=== PATIENT | female | born 1995 | race American Indian/Alaskan Native ===

== ENCOUNTER 2017-01-10 18:02 | Emergency (ER) | payer SELFPAY ==
[2017-01-10 18:32] VITALS: BP 130/85
== END 2017-01-10 21:45 | disposition left against medical advice (07) ==
LOC: ED 18:02
DX: S01.511A Laceration without foreign body of lip, initial encounter (principal); X58.XXXA Exposure to other specified factors, initial encounter; Y93.9 Activity, unspecified; Y92.89 Other specified places as the place of occurrence of the external cause; Y99.9 Unspecified external cause status; Z53.21 Procedure and treatment not carried out due to patient leaving prior to being seen by health care provider

== ENCOUNTER 2019-03-03 04:38 | Inpatient (IN) | payer OTHER ==
[2019-03-03] MEDS ORDERED: SODIUM CHLORIDE 0.9% 1000 ML 1,000 ML IV ONE ×2 (05:01→09:01)
[2019-03-03 05:27] LABS: Bacteria,Urine 1+ /HPF (Negative); Bilirubin,Urine NEG (Negative); Blood,Urine NEG (Negative); Color,Urine Straw (Yellow); Hyaline Casts,Urine 1 /LPF; Protein,Urine <15 mg/dL mg/dL (Negative); Urobilinogen,Urine < 2.0 mg/dL (<2.0)
[2019-03-03 05:32] LABS: Amphetamine Screen,Urine PRESUMPTIVE NEGATIVE; Benzodiazepines Screen,Urine PRESUMPTIVE NEGATIVE; Cannabinoid Screen,Urine PRESUMPTIVE NEGATIVE; Cocaine Screen,Urine PRESUMPTIVE NEGATIVE; Methadone Screen,Urine PRESUMPTIVE NEGATIVE; Opiate Screen,Urine PRESUMPTIVE NEGATIVE
[2019-03-03 06:02] LABS: Basophils # (Auto) 0.1 K/mm3 (0.0-0.1); Basophils % (Auto) 0.7 % (0.0-1.8); Eosinophils % (Auto) 0.3 % (0.0-4.3); Hematocrit 33.5 % (30.3-42.9); Hemoglobin 10.7 gm/dl (10.1-14.3); Lymphocytes # (Auto) 1.3 K/mm3 (1.2-5.4); Lymphocytes % (Auto) 16.4 % (13.4-35.0); Mean Corpuscular HGB Conc 32 % (30-34); Mean Corpuscular Volume 77 fl (79-97); Monocytes # (Auto) 0.6 K/mm3 (0.0-0.8); Monocytes % (Auto) 7.2 % (0.0-7.3); Platelet Count 185 K/mm3 (140-440); Red Blood Count 4.35 M/mm3 (3.65-5.03); Red Cell Distribution Width 16.7 % (13.2-15.2)
[2019-03-03 06:12] LABS: BUN/Creatinine Ratio 19; Blood Urea Nitrogen 15 mg/dL (7-17); Calcium 9.7 mg/dL (8.4-10.2); Hemolysis Index 6
[2019-03-03 06:22] LABS: Free T4 (Free Thyroxine) 1.11 ng/dL (0.76-1.46)
--- NOTE | 2019-03-03 06:29 | Emergency Department Report ---
History of Present Illness - General Chief Complaint: Psych Stated Complaint: POSS OD Time Seen by Provider: 03/03/19 06:13 Source: patient, EMS Mode of arrival: Stretcher Limitations: Other - History of Present Illness Initial Comments: Patient is a 23-year-old female that presents emergency room for possible overdose. Mother is at bedside. Mother states that the patient possibly took Seroquel. Mother has empty bottles of Seroquel which are bottles of the patient's boyfriend reviewed patient denies chest pain. Patient denies any complaints. Patient denies suicidal or homicidal ideation.. Patient denies taking medications. Complaint: accidental overdose -: Sudden Intent: unknown How Overdose Was Discovered: called family/friend Context: Intentional Overdose: relationship problems Context: Accidental Overdose: uncertain what happened Treatments Prior to Arrival: none - Related Data Allergies Allergy/AdvReac Type Severity Reaction Status Date / Time No Known Allergies Allergy Unverified 01/10/17 18:28 ED Review of Systems ROS: Stated complaint: POSS OD Other details as noted in HPI Constitutional: denies: chills, fever Eyes: denies: eye pain, eye discharge, vision change ENT: denies: ear pain, throat pain Respiratory: denies: cough, shortness of breath, wheezing Cardiovascular: denies: chest pain, palpitations Endocrine: no symptoms reported Gastrointestinal: denies: abdominal pain, nausea, diarrhea Genitourinary: denies: urgency, dysuria, discharge Musculoskeletal: denies: back pain, joint swelling, arthralgia Skin: denies: rash, lesions Neurological: denies: headache, weakness, paresthesias Psychiatric: denies: anxiety, depression Hematological/Lymphatic: denies: easy bleeding, easy bruising ED Past Medical Hx - Past Medical History Previous Medical History?: No - Surgical History Past Surgical History?: No - Family History Family history: no significant - Social History Smoking Status: Current Every Day Smoker Substance Use Type: Marijuana ED Physical Exam - General Limitations: Altered Mental Status General appearance: alert, in no apparent distress - Head Head exam: Present: atraumatic, normocephalic - Eye Eye exam: Present: normal appearance - ENT ENT exam: Present: mucous membranes moist - Neck Neck exam: Present: normal inspection - Respiratory Respiratory exam: Present: normal lung sounds bilaterally. Absent: respiratory distress - Cardiovascular Cardiovascular Exam: Present: regular rate, normal rhythm. Absent: systolic murmur, diastolic murmur, rubs, gallop - GI/Abdominal GI/Abdominal exam: Present: soft, normal bowel sounds - Extremities Exam Extremities exam: Present: normal inspection - Back Exam Back exam: Present: normal inspection - Neurological Exam Neurological exam: Present: alert, altered - Psychiatric Psychiatric exam: Present: flat affect - Expanded Psychiatric Exam Expanded Focused psych exam: Present: pressured speech, delusional, restlessness, flight of ideas - Skin Skin exam: Present: warm, dry, intact, normal color. Absent: rash ED Course Vital Signs 03/03/19 03/03/19 03/03/19 04:40 05:20 07:01 Temperature 97.8 F Pulse Rate 131 H 106 H Respiratory 22 18 26 H Rate Blood Pressure 137/87 Blood Pressure 153/95 [Right] O2 Sat by Pulse 100 100 Oximetry 03/03/19 10:04 Temperature Pulse Rate 93 H Respiratory 16 Rate Blood Pressure Blood Pressure 125/77 [Right] O2 Sat by Pulse 98 Oximetry - Reevaluation(s) Reevaluation #1: Initial evaluation done. The nurse will contact poison control 03/03/19 06:29 Reevaluation #2: Patient is alert and oriented 3. Patient denies taking Seroquel. Patient states she only took 2 Benadryl. Patient denies suicidal or homicidal ace ations. Patient is still acting strange. Due to the fact the patient is a psychiatric been improving. Patient placed on a 1013. 03/03/19 08:50 Reevaluation #3: Denies taking any medications. Patient still acting strange. Due to the fact patient is having prolonged QTC enteral and metabolic acidosis. Patient will be admitted to the hospitalist service for continued evaluation and observation.. Patient and Mother agree with plan of care. Patient is are to be placed on a 1013. I discussed all results with patient and mother. 03/03/19 09:01 - Consultations Consultation #1: Hospitalist consult for admission. Hospitalist admit patient. [facility] orders placed 03/03/19 09:07 ED Medical Decision Making - Lab Data Result diagrams: 03/03/19 05:22 03/03/19 05:22 - EKG Data -: EKG Interpreted by Me EKG shows normal: sinus rhythm, axis, intervals, QRS complexes, ST-T waves Rate: tachycardia - EKG Data Interpretation: other (borderline QT interval) - Medical Decision Making Patient is a 23-year-old female that presents emergency room for possible overdose and ingestion of Seroquel. Patient's clinical exam consistent with acute psychosis and bizarre behaviors. Patient somewhat unreliable as a historian. Patient story continues to change upon what she actually ingested. Patient had labs done and consistent with metabolic acidosis. Patient given fluids in the ER. Poison control consult. Patient had a prolonged QT on EKG. Laboratory findings and EKG findings, are concerning and consistent with a drug ingestion and possible overdose. Patient admitted to the hospitalist service for further evaluation treatment and observation and repeat assessments. - Differential Diagnosis psychosis. Overdose. Drug ingestion. Metabolic acidosis. Critical Care Time: Yes Critical care time in (mins) excluding proc time.: 45 Critical care attestation.: If time is entered above; I have spent that time in minutes in the direct care of this critically ill patient, excluding procedure time. Critical Care Time: 45 minutes ED Disposition Clinical Impression: Acute psychosis, Metabolic acidosis, Prolonged QT interval, Tachycardia Overdose Qualifiers: Encounter type: initial encounter Injury intent: undetermined intent Qualified Code(s): T50.904A - Poisoning by unspecified drugs, medicaments and biological substances, undetermined, initial encounter Disposition: 09 OP ADMIT IP TO THIS HOSP Is pt being admited?: Yes Does the pt Need Aspirin: No Condition: Critical Time of Disposition: 09:06
--- NOTE | 2019-03-03 12:48 | History and Physical Report ---
History of Present Illness Date of examination: 03/03/19 Date of admission: 03/03/19 09:05 Chief complaint: Possible drug overdose History of present illness: 23-year-old -[place] female patient fits no significant past medical history not on any medications was brought to the emergency room With history of altered level of consciousness, and possible drug overdose As per medical records mother has seen empty bottles of Seroquel half patient's boyfriend. However when I evaluated the patient, patient reports taking 2 Tylenol PM and Benadryl to relieve her stress Patient complains of generalized stress disorder, with the personal and financial issues At the time of my examination patient denied suicidal thoughts or ideation Denies chest pain or shortness of breath denies, complaints of headache for the last many months Headache relieved by Tylenol Past History Past Medical History: No medical history Past Surgical History: No surgical history Social history: lives with family, smoking, alcohol abuse. denies: prescription drug abuse Family history: hypertension Medications and Allergies Allergies Allergy/AdvReac Type Severity Reaction Status Date / Time No Known Allergies Allergy Unverified 01/10/17 18:28 Home Medications Medication Instructions Recorded Confirmed Last Taken Type Tylenol 325 mg PO PRN PRN 03/03/19 03/03/19 03/02/19 History diphenhydrAMINE [Benadryl CAP] 25 mg PO Q6HR PRN 03/03/19 03/03/19 03/02/19 History Review of Systems Constitutional: no weight loss, no weight gain, no fever, no chills Cardiovascular: no chest pain, no orthopnea, no palpitations Respiratory: no cough, no shortness of breath Gastrointestinal: no abdominal pain, no nausea, no vomiting Genitourinary Female: no flank pain, no dysuria Musculoskeletal: no myalgias, no arthritis Integumentary: no rash, no lesions Neurological: no numbness, no tingling, no seizures Psychiatric: other (complaints of stress), no anxiety, no depression Endocrine: no cold intolerance, no heat intolerance Hematologic/Lymphatic: no easy bruising, no easy bleeding Allergic/Immunologic: no urticaria, no allergic rhinitis Exam - Constitutional Vitals: Temp Pulse Resp BP Pulse Ox 97.8 F 93 H 16 125/77 98 03/03/19 04:40 03/03/19 10:04 03/03/19 10:04 03/03/19 10:04 03/03/19 10:04 General appearance: Present: no acute distress, well-nourished - EENT Eyes: Present: PERRL, EOM intact - Neck Neck: Present: supple, normal ROM - Respiratory Respiratory effort: normal Respiratory: negative: rales, rhonchi, wheezing - Cardiovascular Rhythm: regular Heart Sounds: Present: S1 & S2 - Extremities Extremities: no ischemia, No edema - Abdominal General gastrointestinal: Present: soft, non-tender, non-distended, normal bowel sounds - Integumentary Integumentary: Present: clear, warm - Musculoskeletal Musculoskeletal: strength equal bilaterally - Psychiatric Psychiatric: appropriate mood/affect, cooperative - Neurologic Neurologic: moves all extremities Results - Labs CBC & Chem 7: 03/03/19 05:22 03/03/19 05:22 Labs: Abnormal lab results 03/03/19 03/03/19 03/03/19 Range/Units 05:22 05:22 05:22 MCV (79-97) fl MCH (28-32) pg RDW (13.2-15.2) % Seg Neutrophils % (40.0-70.0) % Potassium 3.4 L (3.6-5.0) mmol/L Carbon Dioxide 20 L (22-30) mmol/L Salicylates 2.0 L (2.8-20.0) mg/dL Acetaminophen < 5.0 L (10.0-30.0) ug/mL 03/03/19 Range/Units 05:22 MCV 77 L (79-97) fl MCH 25 L (28-32) pg RDW 16.7 H (13.2-15.2) % Seg Neutrophils % 75.4 H (40.0-70.0) % Potassium (3.6-5.0) mmol/L Carbon Dioxide (22-30) mmol/L Salicylates (2.8-20.0) mg/dL Acetaminophen (10.0-30.0) ug/mL Assessment and Plan --The drug overdose; confused at admission Patient took 2 of Tylenol PM and 2 of Benadryl Patient is more alert and awake today --Possible suicidal attempt; Suicide precautions, supportive care 1013 status, psych evaluation --Hypokalemia; KCl 40 mEq 1 --Generalized stress/anxiety; Supportive care, psych evaluation --Ongoing tobacco use; Smoking cessation counseling done Nicotine patch as needed --1013 Monitor clinically and adjust management as needed Plan of care is reviewed for the patient and her aunt at the bedside As well as patient's nurse
[2019-03-03] MEDS ORDERED: ACETAMINOPHEN 325 MG TAB PO PRN (13:18)
[2019-03-03] MEDS ORDERED: POTASSIUM CHLORIDE ER 10 MEQ TAB PO ONE (14:00)
[2019-03-03] MEDS: PANTOPRAZOLE 40 MG INJ IV SCH (14:21)
[2019-03-03] MEDS: SODIUM CHLORIDE 0.9% 1000 ML 1,000 ML IV SCH (14:21)
[2019-03-04] MEDS: SODIUM CHLORIDE 0.9% 1000 ML 1,000 ML IV SCH (01:14)
[2019-03-04 05:45] LABS: BUN/Creatinine Ratio 13; Blood Urea Nitrogen 12 mg/dL (7-17); Calcium 8.8 mg/dL (8.4-10.2); Hemolysis Index 3
[2019-03-04] MEDS: PANTOPRAZOLE 40 MG INJ IV SCH (10:16)
--- NOTE | 2019-03-04 12:48 | Consultation ---
History of Present Illness - Reason for Consult Consult date: 03/04/19 Reason for consult: Mental Health Evaluation Requesting physician: CINDY SALAZAR III - Chief Complaint Chief complaint: "I didn't overdose" - History of Present Psychiatric Illness 23 y.o. AA female who presented to the ER for possible overdose. Today the patient was calm during the assessment. She is adamant that she didn't in tentional overdose on anything. She stated that she took 2 Tylenol PM and 2 Benadryl pills for sleep. She was asked about the empty Seroquel bottles that were in her bag, she stated that she was holding the bottles for her boyfriend. She did state that she have been stressed about her finances. She denies a hx of mental health, self harm, or suicide attempt. She denies SI/HI's and AVH's. She denies erratic sleep and a poor appetite. She denies recreational drug use and alcohol consumption (etoh). Medications and Allergies Allergies Allergy/AdvReac Type Severity Reaction Status Date / Time No Known Allergies Allergy Unverified 01/10/17 18:28 Home Medications Medication Instructions Recorded Confirmed Last Taken Type Tylenol 325 mg PO PRN PRN 03/03/19 03/03/19 03/02/19 History diphenhydrAMINE [Benadryl CAP] 25 mg PO Q6HR PRN 03/03/19 03/03/19 03/02/19 History Active Meds: Active Medications Acetaminophen (Tylenol) 650 mg PO Q6H PRN PRN Reason: Pain, Mild (1-3) Sodium Chloride (Nacl 0.9% 1000 Ml) 1,000 mls @ 100 mls/hr IV DIRECT FRANCISCO Last Admin: 03/04/19 01:14 Dose: 100 mls/hr Documented by: Pantoprazole Sodium (Protonix) 40 mg PO DAILY FRANCISCO Past psychiatric history - Past Medical History Past Medical History: other ( x 1) Past Surgical History: No surgical history - past Psychiatric treatment and history psychiatric treatment history: Denies a psy hx and fam psy hx. - Social History Social history: lives with family Mental Status Exam - Vital signs Last Vital Signs Temp 97.5 F L 03/04/19 06:03 Pulse 78 03/03/19 16:15 Resp 16 03/04/19 06:03 BP 100/53 03/04/19 06:03 Pulse Ox 100 03/03/19 16:15 - Exam Narrative exam: MSE: Appearance: calm Behavior: regular eye contact Speech: regular rate with loud tone Mood:: "okay" Affect: congruent to mood Thought Process: circumstantial Thought Content: denies SI/HI's and AVH's Motor Activity: ambulatory Cognition: A/O x3 Insight: variable Judgment: poor Results Result Diagrams: 03/03/19 05:22 03/04/19 04:50 All other labs normal. Assessment and Plan Assessment and plan: Impression: Intentional vs Unintentional overdose. Today the patient was calm during the assessment. Recommendation/Plan: Continue 1013 and gather collateral information to help determine proper dispo. Staffed with Dr Adam Pham.
--- NOTE | 2019-03-04 18:21 | Progress Note ---
Assessment and Plan Assessment and plan: --The drug overdose; confused at admission Patient took 2 of Tylenol PM and 2 of Benadryl Patient is more alert and awake today --Possible suicidal attempt; Suicide precautions, supportive care 1013 status, psych evaluation --Hypokalemia; KCl 40 mEq 1 --Generalized stress/anxiety; Supportive care, psych evaluation --Ongoing tobacco use; Smoking cessation counseling done Nicotine patch as needed --1013 Monitor clinically and adjust management as needed Plan of care is reviewed for the patient and her aunt at the bedside As well as patient's nurse History Interval history: Patient alert and awake in no new complaints Antisocial resource or ideation Vital signs noted 1013 status Hospitalist Physical - Constitutional Vitals: Temp Pulse Resp BP Pulse Ox 97.5 F L 78 16 100/53 100 03/04/19 06:03 03/03/19 16:15 03/04/19 06:03 03/04/19 06:03 03/03/19 16:15 General appearance: Present: no acute distress, well-nourished - EENT Eyes: Present: PERRL, EOM intact - Neck Neck: Present: supple, normal ROM - Respiratory Respiratory effort: normal Respiratory: bilateral: diminished, negative: rales, rhonchi, wheezing - Cardiovascular Rhythm: regular Heart Sounds: Present: S1 & S2 - Extremities Extremities: no ischemia, No edema - Abdominal General gastrointestinal: soft, non-tender, non-distended, normal bowel sounds - Integumentary Integumentary: Present: clear, warm - Psychiatric Psychiatric: appropriate mood/affect, cooperative - Neurologic Neurologic: CNII-XII intact, moves all extremities Results - Labs CBC & Chem 7: 03/03/19 05:22 03/04/19 04:50 Labs: Laboratory Last Values WBC 7.8 K/mm3 (4.5-11.0) 03/03/19 05:22 RBC 4.35 M/mm3 (3.65-5.03) 03/03/19 05:22 Hgb 10.7 gm/dl (10.1-14.3) 03/03/19 05:22 Hct 33.5 % (30.3-42.9) 03/03/19 05:22 MCV 77 fl (79-97) L 03/03/19 05:22 MCH 25 pg (28-32) L 03/03/19 05:22 MCHC 32 % (30-34) 03/03/19 05:22 RDW 16.7 % (13.2-15.2) H 03/03/19 05:22 Plt Count 185 K/mm3 (140-440) 03/03/19 05:22 Lymph % (Auto) 16.4 % (13.4-35.0) 03/03/19 05:22 [place] % (Auto) 7.2 % (0.0-7.3) 03/03/19 05:22 Eos % (Auto) 0.3 % (0.0-4.3) 03/03/19 05:22 Baso % (Auto) 0.7 % (0.0-1.8) 03/03/19 05:22 Lymph # 1.3 K/mm3 (1.2-5.4) 03/03/19 05:22 [place] # 0.6 K/mm3 (0.0-0.8) 03/03/19 05:22 Eos # 0.0 K/mm3 (0.0-0.4) 03/03/19 05:22 Baso # 0.1 K/mm3 (0.0-0.1) 03/03/19 05:22 Seg Neutrophils % 75.4 % (40.0-70.0) H 03/03/19 05:22 Seg Neutrophils # 5.9 K/mm3 (1.8-7.7) 03/03/19 05:22 Sodium 138 mmol/L (137-145) 03/04/19 04:50 Potassium 4.6 mmol/L (3.6-5.0) D 03/04/19 04:50 Chloride 105.4 mmol/L (98-107) 03/04/19 04:50 Carbon Dioxide 22 mmol/L (22-30) 03/04/19 04:50 Anion Gap 15 mmol/L 03/04/19 04:50 BUN 12 mg/dL (7-17) 03/04/19 04:50 Creatinine 0.9 mg/dL (0.7-1.2) 03/04/19 04:50 Estimated GFR > 60 ml/min 03/04/19 04:50 BUN/Creatinine Ratio 13 % 03/04/19 04:50 Glucose 93 mg/dL (65-100) 03/04/19 04:50 Osmolality 280 Mosm/kg 03/03/19 05:22 Calcium 8.8 mg/dL (8.4-10.2) 03/04/19 04:50 Magnesium 1.80 mg/dL (1.7-2.3) 03/03/19 05:22 TSH 2.470 mlU/mL (0.270-4.200) 03/03/19 05:22 Free T4 1.11 ng/dL (0.76-1.46) 03/03/19 05:22 HCG, Qual Negative (Negative) 03/03/19 05:22 Urine Color Straw (Yellow) 03/03/19 04:58 Urine Turbidity Clear (Clear) 03/03/19 04:58 Urine pH 6.0 (5.0-7.0) 03/03/19 04:58 Ur Specific [place] 1.012 (1.003-1.030) 03/03/19 04:58 Urine Protein <15 mg/dl mg/dL (Negative) 03/03/19 04:58 Urine Glucose (UA) Neg mg/dL (Negative) 03/03/19 04:58 Urine Ketones Neg mg/dL (Negative) 03/03/19 04:58 Urine Blood Neg (Negative) 03/03/19 04:58 Urine Nitrite Neg (Negative) 03/03/19 04:58 Urine Bilirubin Neg (Negative) 03/03/19 04:58 Urine Urobilinogen < 2.0 mg/dL (<2.0) 03/03/19 04:58 Ur Leukocyte Esterase Neg (Negative) 03/03/19 04:58 Urine WBC (Auto) 3.0 /HPF (0.0-6.0) 03/03/19 04:58 Urine RBC (Auto) 1.0 /HPF (0.0-6.0) 03/03/19 04:58 U Epithel Cells (Auto) 2.0 /HPF (0-13.0) 03/03/19 04:58 Urine Bacteria (Auto) 1+ /HPF (Negative) 03/03/19 04:58 Hyaline Casts 1 /LPF 03/03/19 04:58 Salicylates 2.0 mg/dL (2.8-20.0) L 03/03/19 05:22 Urine Opiates Screen Presumptive negative 03/03/19 04:58 Urine Methadone Screen Presumptive negative 03/03/19 04:58 Acetaminophen < 5.0 ug/mL (10.0-30.0) L 03/03/19 05:22 Ur Barbiturates Screen Presumptive negative 03/03/19 04:58 Ur Phencyclidine Scrn Presumptive negative 03/03/19 04:58 Ur Amphetamines Screen Presumptive negative 03/03/19 04:58 U Benzodiazepines Scrn Presumptive negative 03/03/19 04:58 Urine Cocaine Screen Presumptive negative 03/03/19 04:58 U Marijuana (THC) Screen Presumptive negative 03/03/19 04:58 Drugs of Abuse Note Disclamer 03/03/19 04:58 Plasma/Serum Alcohol < 0.01 % (0-0.07) 03/03/19 05:22 Active Medications - Current Medications Current Medications: Generic Name Dose Route Start Last Admin Trade Name Freq PRN Reason Stop Dose Admin Acetaminophen 650 mg 03/03/19 13:18 Tylenol PO Q6H PRN Pain, Mild (1-3) Pantoprazole Sodium 40 mg 03/05/19 10:00 Protonix PO DAILY FRANCISCO
[2019-03-05] MEDS: PANTOPRAZOLE 40 MG TAB PO SCH (09:32)
--- NOTE | 2019-03-05 10:25 | Progress Note ---
Assessment and Plan Assessment and plan: --The drug overdose; confused at admission Patient took 2 of Tylenol PM and 2 of Benadryl Patient is more alert and awake today --Possible suicidal attempt; Suicide precautions, supportive care 1013 status, psych evaluation --Hypokalemia; KCl 40 mEq 1 --Generalized stress/anxiety; Supportive care, psych evaluation --Ongoing tobacco use; Smoking cessation counseling done Nicotine patch as needed --1013 Monitor clinically and adjust management as needed Plan of care is reviewed for the patient and her aunt at the bedside As well as patient's nurse Hospitalist Physical - Constitutional Vitals: Temp Pulse Resp BP Pulse Ox 97.5 F L 85 18 100/53 100 03/04/19 06:03 03/04/19 20:11 03/04/19 22:00 03/04/19 06:03 03/03/19 16:15 General appearance: Present: no acute distress, well-nourished - EENT Eyes: Present: PERRL, EOM intact - Neck Neck: Present: supple, normal ROM - Respiratory Respiratory effort: normal Respiratory: bilateral: diminished, negative: rales, rhonchi, wheezing - Cardiovascular Rhythm: regular Heart Sounds: Present: S1 & S2 - Extremities Extremities: no ischemia, No edema - Abdominal General gastrointestinal: soft, non-tender, non-distended, normal bowel sounds - Integumentary Integumentary: Present: clear, warm - Psychiatric Psychiatric: appropriate mood/affect, cooperative - Neurologic Neurologic: CNII-XII intact, moves all extremities Results - Labs CBC & Chem 7: 03/03/19 05:22 03/04/19 04:50 Labs: Laboratory Last Values WBC 7.8 K/mm3 (4.5-11.0) 03/03/19 05:22 RBC 4.35 M/mm3 (3.65-5.03) 03/03/19 05:22 Hgb 10.7 gm/dl (10.1-14.3) 03/03/19 05:22 Hct 33.5 % (30.3-42.9) 03/03/19 05:22 MCV 77 fl (79-97) L 03/03/19 05:22 MCH 25 pg (28-32) L 03/03/19 05:22 MCHC 32 % (30-34) 03/03/19 05:22 RDW 16.7 % (13.2-15.2) H 03/03/19 05:22 Plt Count 185 K/mm3 (140-440) 03/03/19 05:22 Lymph % (Auto) 16.4 % (13.4-35.0) 03/03/19 05:22 [place] % (Auto) 7.2 % (0.0-7.3) 03/03/19 05:22 Eos % (Auto) 0.3 % (0.0-4.3) 03/03/19 05:22 Baso % (Auto) 0.7 % (0.0-1.8) 03/03/19 05:22 Lymph # 1.3 K/mm3 (1.2-5.4) 03/03/19 05:22 [place] # 0.6 K/mm3 (0.0-0.8) 03/03/19 05:22 Eos # 0.0 K/mm3 (0.0-0.4) 03/03/19 05:22 Baso # 0.1 K/mm3 (0.0-0.1) 03/03/19 05:22 Seg Neutrophils % 75.4 % (40.0-70.0) H 03/03/19 05:22 Seg Neutrophils # 5.9 K/mm3 (1.8-7.7) 03/03/19 05:22 Sodium 138 mmol/L (137-145) 03/04/19 04:50 Potassium 4.6 mmol/L (3.6-5.0) D 03/04/19 04:50 Chloride 105.4 mmol/L (98-107) 03/04/19 04:50 Carbon Dioxide 22 mmol/L (22-30) 03/04/19 04:50 Anion Gap 15 mmol/L 03/04/19 04:50 BUN 12 mg/dL (7-17) 03/04/19 04:50 Creatinine 0.9 mg/dL (0.7-1.2) 03/04/19 04:50 Estimated GFR > 60 ml/min 03/04/19 04:50 BUN/Creatinine Ratio 13 % 03/04/19 04:50 Glucose 93 mg/dL (65-100) 03/04/19 04:50 Osmolality 280 Mosm/kg 03/03/19 05:22 Calcium 8.8 mg/dL (8.4-10.2) 03/04/19 04:50 Magnesium 1.80 mg/dL (1.7-2.3) 03/03/19 05:22 TSH 2.470 mlU/mL (0.270-4.200) 03/03/19 05:22 Free T4 1.11 ng/dL (0.76-1.46) 03/03/19 05:22 HCG, Qual Negative (Negative) 03/03/19 05:22 Urine Color Straw (Yellow) 03/03/19 04:58 Urine Turbidity Clear (Clear) 03/03/19 04:58 Urine pH 6.0 (5.0-7.0) 03/03/19 04:58 Ur Specific [place] 1.012 (1.003-1.030) 03/03/19 04:58 Urine Protein <15 mg/dl mg/dL (Negative) 03/03/19 04:58 Urine Glucose (UA) Neg mg/dL (Negative) 03/03/19 04:58 Urine Ketones Neg mg/dL (Negative) 03/03/19 04:58 Urine Blood Neg (Negative) 03/03/19 04:58 Urine Nitrite Neg (Negative) 03/03/19 04:58 Urine Bilirubin Neg (Negative) 03/03/19 04:58 Urine Urobilinogen < 2.0 mg/dL (<2.0) 03/03/19 04:58 Ur Leukocyte Esterase Neg (Negative) 03/03/19 04:58 Urine WBC (Auto) 3.0 /HPF (0.0-6.0) 03/03/19 04:58 Urine RBC (Auto) 1.0 /HPF (0.0-6.0) 03/03/19 04:58 U Epithel Cells (Auto) 2.0 /HPF (0-13.0) 03/03/19 04:58 Urine Bacteria (Auto) 1+ /HPF (Negative) 03/03/19 04:58 Hyaline Casts 1 /LPF 03/03/19 04:58 Salicylates 2.0 mg/dL (2.8-20.0) L 03/03/19 05:22 Urine Opiates Screen Presumptive negative 03/03/19 04:58 Urine Methadone Screen Presumptive negative 03/03/19 04:58 Acetaminophen < 5.0 ug/mL (10.0-30.0) L 03/03/19 05:22 Ur Barbiturates Screen Presumptive negative 03/03/19 04:58 Ur Phencyclidine Scrn Presumptive negative 03/03/19 04:58 Ur Amphetamines Screen Presumptive negative 03/03/19 04:58 U Benzodiazepines Scrn Presumptive negative 03/03/19 04:58 Urine Cocaine Screen Presumptive negative 03/03/19 04:58 U Marijuana (THC) Screen Presumptive negative 03/03/19 04:58 Drugs of Abuse Note Disclamer 03/03/19 04:58 Plasma/Serum Alcohol < 0.01 % (0-0.07) 03/03/19 05:22 Active Medications - Current Medications Current Medications: Generic Name Dose Route Start Last Admin Trade Name Freq PRN Reason Stop Dose Admin Acetaminophen 650 mg 03/03/19 13:18 Tylenol PO Q6H PRN Pain, Mild (1-3) Pantoprazole Sodium 40 mg 03/05/19 10:00 03/05/19 09:32 Protonix PO 40 mg DAILY FRANCISCO Administration
--- NOTE | 2019-03-05 16:59 | Progress Note ---
Subjective - Reason for Consult Consult date: 03/05/19 Reason for consult: follow up - Chief Complaint Chief complaint: "It's starting to come back to me." 23 y.o. AA female who presented to the ER for possible overdose. Today the patient was calm during the assessment. Per the record [ she is adamant that she didn't intend to overdose on anything. She stated that she took 2 Tylenol PM and 2 Benadryl pills for sleep. She was asked about the empty Seroquel bottles that were in her bag, she stated that she was holding the bottles for her boyfriend. She did state that she have been stressed about her finances. She denies a hx of mental health, self harm, or suicide attempt. ] Currently, she denies SI/HI's and AVH's. She denies erratic sleep and a poor appetite. She denies recreational drug use and alcohol consumption (etoh). Mental Status Exam - Vital signs Last Vital Signs Temp 97.7 F 03/05/19 11:34 Pulse 78 03/05/19 11:34 Resp 18 03/05/19 11:34 BP 111/65 03/05/19 11:34 Pulse Ox 100 03/05/19 11:34 - Exam Narrative exam: MSE: Appearance: calm Behavior: guarded Speech: regular rate Mood: "okay." Affect: congruent to mood Thought Process: limited in scope Thought Content: denies SI/HI's and AVH's Motor Activity: ambulatory Cognition: A/O x3 Insight: variable Judgment: poor Assessment and Plan Impression: Intentional vs Unintentional overdose. She was calm but guarded. Minimal information collected. She says she is starting to remember some of what happened. Recommendation/Plan: Continue 1013 and gather collateral information to help determine proper dispo. Staffed with Dr Adam Pham.
[2019-03-06] MEDS: PANTOPRAZOLE 40 MG TAB PO SCH (09:22)
--- NOTE | 2019-03-06 09:48 | Progress Note ---
Assessment and Plan Assessment and plan: --Possible suicidal attempt; Suicide precautions, supportive care 1013 status, psych evaluation Patient denies Any suicidal thoughts today --The drug overdose; confused at admission Patient took 2 of Tylenol PM and 2 of Benadryl Patient is more alert and awake today --Hypokalemia; corrected --Generalized stress/anxiety; Resolved, psych following --Ongoing tobacco use; Smoking cessation counseling done Nicotine patch as needed --1013 Patient is medically stable for discharge Disposition per psych History Interval history: Feels better new complaints Constitutional home Denies suicidal thoughts or ideation Alert awake oriented in no distress Vital signs reviewed Hospitalist Physical - Constitutional Vitals: Temp Pulse Resp BP Pulse Ox 98.0 F 77 14 105/56 100 03/06/19 05:07 03/06/19 05:07 03/06/19 05:07 03/06/19 05:07 03/06/19 05:07 General appearance: Present: no acute distress, well-nourished - EENT Eyes: Present: PERRL, EOM intact - Neck Neck: Present: supple, normal ROM - Respiratory Respiratory effort: normal Respiratory: negative: rales, rhonchi, wheezing - Cardiovascular Rhythm: regular Heart Sounds: Present: S1 & S2 - Extremities Extremities: no ischemia, No edema - Abdominal General gastrointestinal: soft, non-tender, non-distended, normal bowel sounds - Integumentary Integumentary: Present: clear, warm - Psychiatric Psychiatric: appropriate mood/affect, cooperative - Neurologic Neurologic: CNII-XII intact, moves all extremities Results - Labs CBC & Chem 7: 03/03/19 05:22 03/04/19 04:50 Labs: Laboratory Last Values WBC 7.8 K/mm3 (4.5-11.0) 03/03/19 05:22 RBC 4.35 M/mm3 (3.65-5.03) 03/03/19 05:22 Hgb 10.7 gm/dl (10.1-14.3) 03/03/19 05:22 Hct 33.5 % (30.3-42.9) 03/03/19 05:22 MCV 77 fl (79-97) L 03/03/19 05:22 MCH 25 pg (28-32) L 03/03/19 05:22 MCHC 32 % (30-34) 03/03/19 05:22 RDW 16.7 % (13.2-15.2) H 03/03/19 05:22 Plt Count 185 K/mm3 (140-440) 03/03/19 05:22 Lymph % (Auto) 16.4 % (13.4-35.0) 03/03/19 05:22 [place] % (Auto) 7.2 % (0.0-7.3) 03/03/19 05:22 Eos % (Auto) 0.3 % (0.0-4.3) 03/03/19 05:22 Baso % (Auto) 0.7 % (0.0-1.8) 03/03/19 05:22 Lymph # 1.3 K/mm3 (1.2-5.4) 03/03/19 05:22 [place] # 0.6 K/mm3 (0.0-0.8) 03/03/19 05:22 Eos # 0.0 K/mm3 (0.0-0.4) 03/03/19 05:22 Baso # 0.1 K/mm3 (0.0-0.1) 03/03/19 05:22 Seg Neutrophils % 75.4 % (40.0-70.0) H 03/03/19 05:22 Seg Neutrophils # 5.9 K/mm3 (1.8-7.7) 03/03/19 05:22 Sodium 138 mmol/L (137-145) 03/04/19 04:50 Potassium 4.6 mmol/L (3.6-5.0) D 03/04/19 04:50 Chloride 105.4 mmol/L (98-107) 03/04/19 04:50 Carbon Dioxide 22 mmol/L (22-30) 03/04/19 04:50 Anion Gap 15 mmol/L 03/04/19 04:50 BUN 12 mg/dL (7-17) 03/04/19 04:50 Creatinine 0.9 mg/dL (0.7-1.2) 03/04/19 04:50 Estimated GFR > 60 ml/min 03/04/19 04:50 BUN/Creatinine Ratio 13 % 03/04/19 04:50 Glucose 93 mg/dL (65-100) 03/04/19 04:50 Osmolality 280 Mosm/kg 03/03/19 05:22 Calcium 8.8 mg/dL (8.4-10.2) 03/04/19 04:50 Magnesium 1.80 mg/dL (1.7-2.3) 03/03/19 05:22 TSH 2.470 mlU/mL (0.270-4.200) 03/03/19 05:22 Free T4 1.11 ng/dL (0.76-1.46) 03/03/19 05:22 HCG, Qual Negative (Negative) 03/03/19 05:22 Urine Color Straw (Yellow) 03/03/19 04:58 Urine Turbidity Clear (Clear) 03/03/19 04:58 Urine pH 6.0 (5.0-7.0) 03/03/19 04:58 Ur Specific [place] 1.012 (1.003-1.030) 03/03/19 04:58 Urine Protein <15 mg/dl mg/dL (Negative) 03/03/19 04:58 Urine Glucose (UA) Neg mg/dL (Negative) 03/03/19 04:58 Urine Ketones Neg mg/dL (Negative) 03/03/19 04:58 Urine Blood Neg (Negative) 03/03/19 04:58 Urine Nitrite Neg (Negative) 03/03/19 04:58 Urine Bilirubin Neg (Negative) 03/03/19 04:58 Urine Urobilinogen < 2.0 mg/dL (<2.0) 03/03/19 04:58 Ur Leukocyte Esterase Neg (Negative) 03/03/19 04:58 Urine WBC (Auto) 3.0 /HPF (0.0-6.0) 03/03/19 04:58 Urine RBC (Auto) 1.0 /HPF (0.0-6.0) 03/03/19 04:58 U Epithel Cells (Auto) 2.0 /HPF (0-13.0) 03/03/19 04:58 Urine Bacteria (Auto) 1+ /HPF (Negative) 03/03/19 04:58 Hyaline Casts 1 /LPF 03/03/19 04:58 Salicylates 2.0 mg/dL (2.8-20.0) L 03/03/19 05:22 Urine Opiates Screen Presumptive negative 03/03/19 04:58 Urine Methadone Screen Presumptive negative 03/03/19 04:58 Acetaminophen < 5.0 ug/mL (10.0-30.0) L 03/03/19 05:22 Ur Barbiturates Screen Presumptive negative 03/03/19 04:58 Ur Phencyclidine Scrn Presumptive negative 03/03/19 04:58 Ur Amphetamines Screen Presumptive negative 03/03/19 04:58 U Benzodiazepines Scrn Presumptive negative 03/03/19 04:58 Urine Cocaine Screen Presumptive negative 03/03/19 04:58 U Marijuana (THC) Screen Presumptive negative 03/03/19 04:58 Drugs of Abuse Note Disclamer 03/03/19 04:58 Plasma/Serum Alcohol < 0.01 % (0-0.07) 03/03/19 05:22 Active Medications - Current Medications Current Medications: Generic Name Dose Route Start Last Admin Trade Name Freq PRN Reason Stop Dose Admin Acetaminophen 650 mg 03/03/19 13:18 Tylenol PO Q6H PRN Pain, Mild (1-3) Pantoprazole Sodium 40 mg 03/05/19 10:00 03/06/19 09:22 Protonix PO 40 mg DAILY FRANCISCO Administration
--- NOTE | 2019-03-06 18:23 | Progress Note ---
Subjective - Reason for Consult Consult date: 03/06/19 Reason for consult: follow up - Chief Complaint Chief complaint: "I feel better; when can I go?" 23 y.o. AA female who presented to the ER for possible overdose. Today the patient was calm during the assessment. Per the record [ she is adamant that she didn't intend to overdose on anything. She stated that she took 2 Tylenol PM and 2 Benadryl pills for sleep. She was asked about the empty Seroquel bottles that were in her bag, she stated that she was holding the bottles for her boyfriend. She did state that she have been stressed about her finances. She denies a hx of mental health, self harm, or suicide attempt. ] Currently, she denies SI/HI's and AVH's. She denies erratic sleep and a poor appetite. She denies recreational drug use and alcohol consumption (etoh). She insists she took 2 tylenol PMs and shortly after 2 benadryl for allergies and migraine. She denies attempting to harm herself. She also reports she was holding the seroquel bottles to give to her boyfriend's sister. She needed to know his meds since he is in correction. She denies domestic abuse or safety concerns when they were together, prior to his incarceration. Mental Status Exam - Vital signs Last Vital Signs Temp 98.5 F 03/06/19 11:21 Pulse 77 03/06/19 11:21 Resp 18 03/06/19 11:21 BP 107/53 03/06/19 11:21 Pulse Ox 98 03/06/19 11:21 - Exam Narrative exam: MSE: Appearance: calm Behavior: cooperative Speech: regular rate Mood: "okay." Affect: congruent to mood Thought Process: linear Thought Content: denies SI/HI's and AVH's Motor Activity: ambulatory Cognition: A/O x3 Insight: fair Judgment: fair Assessment and Plan Impression: Intentional vs Unintentional overdose. Likely unintentional overdose. Recommendation/Plan: reevaluate need for continued psychiatric hold in 24 hours dispo: continue 1013 and reevaluate need for inpatient in 24 hours. If rescinded, she will need outpatient referrals. Staffed with Dr Adam Pham.
[2019-03-07] MEDS: PANTOPRAZOLE 40 MG TAB PO SCH (09:38)
[2019-03-07 13:00] VITALS: BP 104/59
--- NOTE | 2019-03-07 13:15 | Progress Note ---
Hospitalist Physical - Constitutional Vitals: Temp Pulse Resp BP Pulse Ox 98.0 F 78 18 104/59 100 03/07/19 12:50 03/07/19 12:50 03/07/19 12:50 03/07/19 12:50 03/07/19 12:50 General appearance: Present: no acute distress, well-nourished Results - Labs CBC & Chem 7: 03/03/19 05:22 03/04/19 04:50 Labs: Laboratory Last Values WBC 7.8 K/mm3 (4.5-11.0) 03/03/19 05:22 RBC 4.35 M/mm3 (3.65-5.03) 03/03/19 05:22 Hgb 10.7 gm/dl (10.1-14.3) 03/03/19 05:22 Hct 33.5 % (30.3-42.9) 03/03/19 05:22 MCV 77 fl (79-97) L 03/03/19 05:22 MCH 25 pg (28-32) L 03/03/19 05:22 MCHC 32 % (30-34) 03/03/19 05:22 RDW 16.7 % (13.2-15.2) H 03/03/19 05:22 Plt Count 185 K/mm3 (140-440) 03/03/19 05:22 Lymph % (Auto) 16.4 % (13.4-35.0) 03/03/19 05:22 [place] % (Auto) 7.2 % (0.0-7.3) 03/03/19 05:22 Eos % (Auto) 0.3 % (0.0-4.3) 03/03/19 05:22 Baso % (Auto) 0.7 % (0.0-1.8) 03/03/19 05:22 Lymph # 1.3 K/mm3 (1.2-5.4) 03/03/19 05:22 [place] # 0.6 K/mm3 (0.0-0.8) 03/03/19 05:22 Eos # 0.0 K/mm3 (0.0-0.4) 03/03/19 05:22 Baso # 0.1 K/mm3 (0.0-0.1) 03/03/19 05:22 Seg Neutrophils % 75.4 % (40.0-70.0) H 03/03/19 05:22 Seg Neutrophils # 5.9 K/mm3 (1.8-7.7) 03/03/19 05:22 Sodium 138 mmol/L (137-145) 03/04/19 04:50 Potassium 4.6 mmol/L (3.6-5.0) D 03/04/19 04:50 Chloride 105.4 mmol/L (98-107) 03/04/19 04:50 Carbon Dioxide 22 mmol/L (22-30) 03/04/19 04:50 Anion Gap 15 mmol/L 03/04/19 04:50 BUN 12 mg/dL (7-17) 03/04/19 04:50 Creatinine 0.9 mg/dL (0.7-1.2) 03/04/19 04:50 Estimated GFR > 60 ml/min 03/04/19 04:50 BUN/Creatinine Ratio 13 % 03/04/19 04:50 Glucose 93 mg/dL (65-100) 03/04/19 04:50 Osmolality 280 Mosm/kg 03/03/19 05:22 Calcium 8.8 mg/dL (8.4-10.2) 03/04/19 04:50 Magnesium 1.80 mg/dL (1.7-2.3) 03/03/19 05:22 TSH 2.470 mlU/mL (0.270-4.200) 03/03/19 05:22 Free T4 1.11 ng/dL (0.76-1.46) 03/03/19 05:22 HCG, Qual Negative (Negative) 03/03/19 05:22 Urine Color Straw (Yellow) 03/03/19 04:58 Urine Turbidity Clear (Clear) 03/03/19 04:58 Urine pH 6.0 (5.0-7.0) 03/03/19 04:58 Ur Specific [place] 1.012 (1.003-1.030) 03/03/19 04:58 Urine Protein <15 mg/dl mg/dL (Negative) 03/03/19 04:58 Urine Glucose (UA) Neg mg/dL (Negative) 03/03/19 04:58 Urine Ketones Neg mg/dL (Negative) 03/03/19 04:58 Urine Blood Neg (Negative) 03/03/19 04:58 Urine Nitrite Neg (Negative) 03/03/19 04:58 Urine Bilirubin Neg (Negative) 03/03/19 04:58 Urine Urobilinogen < 2.0 mg/dL (<2.0) 03/03/19 04:58 Ur Leukocyte Esterase Neg (Negative) 03/03/19 04:58 Urine WBC (Auto) 3.0 /HPF (0.0-6.0) 03/03/19 04:58 Urine RBC (Auto) 1.0 /HPF (0.0-6.0) 03/03/19 04:58 U Epithel Cells (Auto) 2.0 /HPF (0-13.0) 03/03/19 04:58 Urine Bacteria (Auto) 1+ /HPF (Negative) 03/03/19 04:58 Hyaline Casts 1 /LPF 03/03/19 04:58 Salicylates 2.0 mg/dL (2.8-20.0) L 03/03/19 05:22 Urine Opiates Screen Presumptive negative 03/03/19 04:58 Urine Methadone Screen Presumptive negative 03/03/19 04:58 Acetaminophen < 5.0 ug/mL (10.0-30.0) L 03/03/19 05:22 Ur Barbiturates Screen Presumptive negative 03/03/19 04:58 Ur Phencyclidine Scrn Presumptive negative 03/03/19 04:58 Ur Amphetamines Screen Presumptive negative 03/03/19 04:58 U Benzodiazepines Scrn Presumptive negative 03/03/19 04:58 Urine Cocaine Screen Presumptive negative 03/03/19 04:58 U Marijuana (THC) Screen Presumptive negative 03/03/19 04:58 Drugs of Abuse Note Disclamer 03/03/19 04:58 Plasma/Serum Alcohol < 0.01 % (0-0.07) 03/03/19 05:22 Active Medications - Current Medications Current Medications: Generic Name Dose Route Start Last Admin Trade Name Freq PRN Reason Stop Dose Admin Acetaminophen 650 mg 03/03/19 13:18 Tylenol PO Q6H PRN Pain, Mild (1-3) Pantoprazole Sodium 40 mg 03/05/19 10:00 03/07/19 09:38 Protonix PO 40 mg DAILY FRANCISCO Administration
--- NOTE | 2019-03-07 13:36 | Progress Note ---
Subjective - Reason for Consult Consult date: 03/07/19 Reason for consult: Psychiatry Follow-up - Chief Complaint Chief complaint: "I will not take several pills together" 23 y.o. AA female who presented to the ER for possible overdose. Today the patient was calm and cooperative during the assessment. Per collateral information from the patient's mother Marek Interiano at [phone], she stated that her daughter may have taken someone else medication because she was "stressed." She denies that her daughter was trying to kill herself. She stated that her daughter have never tried to kill herself in the past. The patient stated that she will read the instructions of medication before ingestion. The patient have been pleasant since her arrival to the hospital. She denies SI/HI's and AVH's. Mental Status Exam - Vital signs Last Vital Signs Temp 98.0 F 03/07/19 12:50 Pulse 78 03/07/19 12:50 Resp 18 03/07/19 12:50 BP 104/59 03/07/19 12:50 Pulse Ox 100 03/07/19 12:50 - Exam Narrative exam: MSE: Appearance: calm, cooperative Behavior: regular eye contact Speech: regular rate with loud tone Mood:: "okay" Affect: congruent to mood Thought Process: linear Thought Content: denies SI/HI's and AVH's Motor Activity: ambulatory Cognition: A/O x3 Insight: fair Judgment: fair Assessment and Plan Impression: Unintentional Overdose. Today the patient was calm and cooperative during the assessment. Recommendation/Plan: Rescind 1013. Discussed the importance to take medication per the instructions. Also, discussed with the patient not to take medications that not prescribed for her, she verbalized understanding for all. Will staff with Dr Adam Pham.
--- NOTE | 2019-03-07 16:03 | Discharge Summary ---
Providers - Providers Date of Admission: 03/03/19 09:05 Date of discharge: 03/07/19 Attending physician: KACY FLETCHER 03/03/19 12:50 psychiatry consult [Consult to Mental Health] [CONS] Routine Reason For Exam: suicidal attempt,drug OD Place consult to:: neonatal nurse practitioner Notified:: Phone number called:: [phone] Was contact made?: Yes Time called:: 08:20 Primary care physician: [facility], Hospitalization Reason for admission: Altered level of consciousness, and possible drug overdose, Condition: Stable Hospital course: 23-year-old -[place] female patient fits no significant past medical history not on any medications was admitted through emergency room, With history of altered level of consciousness, and possible drug overdose, mother has seen empty bottles of Seroquel of patient's boyfriend. However when I evaluated the patient, patient reports taking 2 Tylenol PM and Benadryl to relieve her stress Patient complains of generalized stress disorder, with the personal and financial issues At the time of my examination patient denied suicidal thoughts or ideation Was placed on suicide watch, 1013 status, subsequently evaluated by psych Closely observed for a couple of days, patient denied any suicidal thoughts or ideation The patient is comfortable no new complaints vital signs stable physical examination unremarkable Patient is hemodynamically and clinically stable for discharge Psych DC'd 1013 cleared for discharge, follow-up behavioral health upon discharge Patient is hemodynamically and clinically stable Discharge diagnosis; --Possible suicidal attempt; Suicide precautions, supportive care 1013 status, psych evaluation Patient denies Any suicidal thoughts today --The drug overdose; confused at admission Patient took 2 of Tylenol PM and 2 of Benadryl Patient is more alert and awake today --Hypokalemia; corrected --Generalized stress/anxiety; Resolved, psych following --Ongoing tobacco use; Smoking cessation counseling done Nicotine patch as needed --1013 Patient is medically stable for discharge Disposition: DC-01 TO HOME OR SELFCARE Time spent for discharge: 32 min Core Measure Documentation - Palliative Care Palliative Care/ Comfort Measures: Not Applicable - Core Measures Any of the following diagnoses?: none Exam - Constitutional Vitals: Temp Pulse Resp BP Pulse Ox 98.0 F 78 18 104/59 100 03/07/19 12:50 03/07/19 12:50 03/07/19 12:50 03/07/19 12:50 03/07/19 12:50 General appearance: Present: no acute distress, well-nourished - EENT Eyes: Present: PERRL, EOM intact - Neck Neck: Present: supple, normal ROM - Respiratory Respiratory: negative: rales, rhonchi, wheezing - Cardiovascular Rhythm: regular Heart Sounds: Present: S1 & S2 - Extremities Extremities: no ischemia, No edema - Abdominal General gastrointestinal: Present: soft, non-tender, non-distended, normal bowel sounds - Integumentary Integumentary: Present: clear, warm - Musculoskeletal Musculoskeletal: strength equal bilaterally, generalized weakness - Psychiatric Psychiatric: appropriate mood/affect, cooperative - Neurologic Neurologic: CNII-XII intact, moves all extremities Plan Activity: advance as tolerated Diet: regular Additional Instructions: Advised to follow up with [facility] in 3-4 days Follow up with: GEORGIANA TRAVIS MD [Primary Care Provider] - 7 Days Prescriptions: Pantoprazole [Protonix TAB] 40 mg PO DAILY #10 tablet
== END 2019-03-07 17:20 | disposition home or self-care (01) | DRG 918 ==
LOC: ED 04:38 → 3A 09:05
PROVIDERS: ADMIT Internal Medicine; ATTEND Internal Medicine
DX: T39.1X2A Poisoning by 4-Aminophenol derivatives, intentional self-harm, initial encounter (principal); E87.2 Acidosis; F23 Brief psychotic disorder; T45.0X2A Poisoning by antiallergic and antiemetic drugs, intentional self-harm, initial encounter; E87.6 Hypokalemia; F41.1 Generalized anxiety disorder; F17.200 Nicotine dependence, unspecified, uncomplicated; F10.10 Alcohol abuse, uncomplicated; F12.90 Cannabis use, unspecified, uncomplicated; R00.0 Tachycardia, unspecified; Z71.6 Tobacco abuse counseling; Y92.89 Other specified places as the place of occurrence of the external cause; Z82.49 Family history of ischemic heart disease and other diseases of the circulatory system
CPT/HCPCS: 36415; 80048; 80307; 80320; 81001; 83735; 83930; 84439; 84443; 84703; 85025; 93005; 93010; 96365; 99406; G0378; C9113; G0480; J7030